=== PATIENT | female | born 1955 | race Caucasian/White ===

== ENCOUNTER → 2019-12-20 | Outpatient (CLI) | payer MEDICARE ==
[2019-12-20 14:23] LABS: ALBUMIN 4.2 g/dL (3.5-5.0); ALKALINE PHOSPHATASE 88 U/L (38-126); ANION GAP 10 (5-19); ASPARTATE AMINO TRANSFERASE 21 U/L (14-36); BILIRUBIN,DIRECT 0.3 mg/dL (0.0-0.4); BILIRUBIN,TOTAL 0.4 mg/dL (0.2-1.3); BLOOD UREA NITROGEN 13 mg/dL (7-20); CALCIUM 9.5 mg/dL (8.4-10.2); CARBON DIOXIDE 30 mmol/L (22-30); CHLORIDE 99 mmol/L (98-107); CHOLESTEROL 179.66 mg/dL (0-200); GLUCOSE 95 mg/dL (75-110); TOTAL PROTEIN 7.4 g/dL (6.3-8.2); TRIGLYCERIDES 144 mg/dL (<150)
[2019-12-20 14:34] LABS: DIRECT LDL 108 mg/dL (<100)
== END ==
LOC: LAB 13:09
PROVIDERS: ATTEND Family Medicine
DX: E78.5 Hyperlipidemia, unspecified (principal); R03.0 Elevated blood-pressure reading, without diagnosis of hypertension; Z13.29 Encounter for screening for other suspected endocrine disorder
CPT/HCPCS: 36415; 80053; 80061; 84443

== ENCOUNTER → 2020-04-18 | Outpatient (CLI) | payer MEDICARE ==
[2020-04-18 12:39] LABS: ALKALINE PHOSPHATASE 85 U/L (38-126); ANION GAP 8 (5-19); ASPARTATE AMINO TRANSFERASE 24 U/L (14-36); BILIRUBIN,TOTAL 0.6 mg/dL (0.2-1.3); BLOOD UREA NITROGEN 8 mg/dL (7-20); CALCIUM 9.2 mg/dL (8.4-10.2); CARBON DIOXIDE 30 mmol/L (22-30); CHLORIDE 100 mmol/L (98-107); CHOLESTEROL 205.97 mg/dL (0-200); GLUCOSE 104 mg/dL (75-110); POTASSIUM 3.8 mmol/L (3.6-5.0); TRIGLYCERIDES 203 mg/dL (<150)
[2020-04-18 12:52] LABS: DIRECT LDL 120 mg/dL (<100)
[2020-04-18 12:58] LABS: VLDL CHOLESTEROL 40.6 mg/dL (10-31)
== END ==
LOC: OD 11:13
PROVIDERS: ATTEND Family Medicine
DX: E78.5 Hyperlipidemia, unspecified (principal); R03.0 Elevated blood-pressure reading, without diagnosis of hypertension; Z13.29 Encounter for screening for other suspected endocrine disorder
CPT/HCPCS: 36415; 80053; 80061; 84443

== ENCOUNTER → 2020-05-01 | Outpatient (CLI) | payer MEDICARE ==
--- NOTE | 2020-05-05 09:38 | WOMENS IMAGING REPORT ---
EXAM DESCRIPTION: BILAT SCREENING MAMMO W/CAD IMAGES COMPLETED DATE/TIME: 05/05/2020 8:58 am REASON FOR STUDY: Z12.31 ENCOUNTER FOR SCREENING MAMMOGRAM FOR MALIGNANT NEOPLASM OF [id number] E NCNTR SCREEN MAMMOGRAM FOR MALIGNANT NEOPLASM OF ATIYA COMPARISON: None. EXAM PARAMETERS: Standard craniocaudal and mediolateral oblique views of each breast recorded using digital acquisition. Read with the assistance of CAD. .[facility] - R2 [employer] Version 9.2 LIMITATIONS: None. FINDINGS: RIGHT BREAST MASSES: No suspicious masses. CALCIFICATIONS: There are few calcifications in the anterior upper outer breast, slightly variable in size. ARCHITECTURAL DISTORTION: None. ASYMMETRY: None noted. OTHER: No other significant findings. LEFT BREAST MASSES: No suspicious masses. CALCIFICATIONS: Several calcifications in the anterior upper outer breast, slightly variable in size. ARCHITECTURAL DISTORTION: None. ASYMMETRY: None noted. OTHER: No other significant findings. IMPRESSION: Bilateral breast calcifications. Prior studies are available. Recommend magnification views to better visualize. 0 Incomplete: Needs Additional Imaging Evaluation and/or prior Mammograms for Comparison. BREAST DENSITY: c. The breasts are heterogeneously dense, which may obscure small masses. BIRAD: ASSESSMENT: 0 Incomplete: Needs Additional Imaging Evaluation and/or prior Mammograms for C omparison. RECOMMENDATION: RECOMMENDED FOLLOW-UP: Recommend additional evaluation with magnification views of b oth breasts. The patient will be contacted for additional imaging. COMMENT: The patient has been notified of the results by letter per [place] requirements. Additional no tification policies are in place for contacting patient with suspicious or incomplete findings. Quality ID #[id number]: The [employer] recommends an annual screening mammogram for women aged 40 years or over. This facility utilizes a reminder system to ensure that all patients receive reminder letters, and/or direct phone calls for appointments. This includes reminders for routine scr eening mammograms, diagnostic mammograms, or other Breast Imaging Interventions when appropriate. Th is patient will be placed in the appropriate reminder system. TECHNICAL DOCUMENTATION: FINDING NUMBER: (1) ASSESSMENT: (1) JOB ID: [id number] 2010 [employer]- All Rights Reserved Reading location - IP/workstation name: [email or web address]
== END ==
LOC: WI 12:32
PROVIDERS: ATTEND Family Medicine
DX: Z12.31 Encounter for screening mammogram for malignant neoplasm of breast (principal); R92.0 Mammographic microcalcification found on diagnostic imaging of breast
CPT/HCPCS: 77067